=== PATIENT | male | born 1960 | race Caucasian/White ===

== ENCOUNTER 2019-10-06 10:15 | Inpatient (IN) | payer SELFPAY ==
[2019-10-06 11:26] LABS: Basophils % 0.1 % (0-1.3); Hematocrit 46.8 % (39.6-49.0); MPV 10.2 fL (7.6-11.3); RBC Red Blood Cell Count 5.23 M/uL (4.33-5.43)
[2019-10-06 11:27] LABS: Protime INR 1.07
[2019-10-06] MEDS ORDERED: METOPROLOL TAR 25 MG TAB ONE (11:29)
[2019-10-06 11:51] LABS: Albumin 3.8 g/dL (3.4-5.0); Bilirubin Direct 0.1 mg/dL (0-0.2); Bilirubin Total 0.6 mg/dL (0.2-1.0); Magnesium 2.4 mg/dL (1.8-2.4); Potassium 3.9 mmol/L (3.5-5.1); Protein, Total 8.5 g/dL (6.4-8.2); Troponin (Emerg Dept Use Only) 0.3 ng/mL (0.0-0.045)
--- NOTE | 2019-10-06 12:28 | RAD REPORT ---
EXAM DESCRIPTION: RAD - Chest Single View - 10/06/2019 12:20 pm CLINICAL HISTORY: DYSPNEA Chest pain. COMPARISON: No comparisons FINDINGS: Portable technique limits examination quality. Mild bilateral interstitial lung opacities noted which could indicate viral pneumonitis/bronchitis. T he heart is upper limit normal in size. No displaced fractures.Cervical spine hardware plate.
--- NOTE | 2019-10-06 12:40 | P.HP ---
Certification for Inpatient Patient admitted to: Observation With expected LOS: <2 Midnights Patient will require the following post-hospital care: None Practitioner: I am a practitioner with admitting privileges, knowledge of patient current condition, hospital course, and medical plan of care. Services: Services provided to patient in accordance with Admission requirements found in Title 42 Section 412.3 of the Code of Federal Regulations <Smooth Paredes - Last Filed: 10/06/19 12:31> Patient History Date of Service: 10/06/19 Primary Care Provider: none Reason for admission: Hypertensive emergency, elevated troponin History of Present Illness: 59-year-old male with no previously diagnosed medical history presents emergency department for generalized weakness. Patient reports that he has noted that his blood pressures run extremely high for a long time now. Patient also reports intermittent chest pain. He says usually happens every 3-4 days depending on activity level. Patient reports that his systolic blood pressure routinely runs over 200. Patient has never been on any blood pressure medications. States he does not believe and medicine. During his evaluation in emergency department patient is found to have a blood pressure of over 200 systolic and over 100 systolic. Troponin was elevated at 0.3. ED provider wishes to admit patient for further evaluation and management. I saw the patient in the emergency department he was awake, alert, oriented x3. In no distress. Patient denies chest pain this time. Patient is given metoprolol 25 mg p.o. once. Cardiology while patient was in the emergency department. Home medications list reviewed: Yes - Past Medical/Surgical History -: Pneumothorax -: Chest tube Psychosocial/ Personal History: Patient lives with his son in [place]. - Social History Smoking Status: Heavy Tobacco smoker (>10 cigarettes/day) Counseled patient to stop smoking for: less than 10 minutes Smoking therapy provided: Yes Patient receptive to therapy: No Alcohol use: Yes CD- Drugs: Yes Caffeine use: Yes Place of Residence: Home <Smooth Paredes - Last Filed: 10/06/19 12:31> Date of Service: 10/06/19 <iDnesh Guzman - Last Filed: 10/06/19 15:29> Allergies No Known Allergies Allergy (Unverified 10/06/19 14:23) Home Medications: NK [No Home Meds] 10/06/19 Review of Systems 10-point ROS is otherwise unremarkable General: Weakness Respiratory: Cough, Shortness of Breath, SOB with Excertion <Smooth Paredes - Last Filed: 10/06/19 12:31> Physical Examination - Physical Exam General: Alert, In no apparent distress HEENT: Atraumatic, PERRLA, Mucous membr. moist/pink, EOMI, Sclerae nonicteric Neck: Supple, JVD not distended Respiratory: Clear to auscultation bilaterally, Normal air movement Cardiovascular: Regular rate/rhythm, Normal S1 S2 Gastrointestinal: Normal bowel sounds, No tenderness Musculoskeletal: No tenderness Integumentary: No rashes Neurological: Normal gait, Normal speech, Normal strength at 5/5 x4 extr, Normal tone, Normal affect - Studies Laboratory Data (last 24 hrs) 10/06/19 11:10: PT 12.6 H, INR 1.07 10/06/19 11:10: WBC 7.2, Hgb 16.1, Hct 46.8, Plt Count 196 10/06/19 11:10: Sodium 140, Potassium 3.9, BUN 20 H, Creatinine 1.83 H, Glucose 90, Magnesium 2.4, Total Bilirubin 0.6, AST 17, ALT 18, Alkaline Phosphatase 118 H <Smooth Paredes - Last Filed: 10/06/19 12:31> - Studies Laboratory Data (last 24 hrs) 10/06/19 11:10: PT 12.6 H, INR 1.07 10/06/19 11:10: WBC 7.2, Hgb 16.1, Hct 46.8, Plt Count 196 10/06/19 11:10: Sodium 140, Potassium 3.9, BUN 20 H, Creatinine 1.83 H, Glucose 90, Magnesium 2.4, Total Bilirubin 0.6, AST 17, ALT 18, Alkaline Phosphatase 118 H <Dinesh Guzman - Last Filed: 10/06/19 15:29> Assessment and Plan - Plan Assessment Hypertensive emergency with end-organ damage, elevated troponin- Suspect underlying undiagnosed COPD Suspect underlying undiagnosed chronic kidney disease stage 3 Tobacco abuse Plan Hypertensive emergency with end-organ damage, elevated troponin: Cardiology was consulted while patient was in the emergency department, recommend metoprolol 50 mg p.o. b.i.d., Hyzaar 100 mg p.o. daily. Will also supply with p.r.n. hydralazine. Patient currently denies any chest pain but reports that he is having intermittent chest pain over the course of the last few days. Will hold off on DVT prophylaxis at this time with pressures being as high as they are, SCDs in place. Appreciate further input from cardiology. Echocardiogram has been ordered Suspect underlying undiagnosed COPD: Counseled on abstaining from tobacco use, saturations are 100%. Recommend pulmonology follow up at discharge. Suspect underlying undiagnosed chronic kidney disease stage 3: Suspect underlying chronic kidney disease but no history is available. Will repeat morning labs. Tobacco abuse: Counseled on tobacco cessation, nicotine patch provided. Discharge Plan: Home Plan to discharge in: 24 Hours - Advance Directives Does patient have a Living Will: No Does patient have a Durable POA for Healthcare: No - Code Status/Comfort Care Code Status Assessed: Yes (Patient is full code) Critical Care: No Time Spent Managing Pts Care (In Minutes): 55 <Smooth Paredes - Last Filed: 10/06/19 12:31> Physician Review Additional Text: Hypertensive urgency NSTEMI versus type 2 FL Acute on Chronic CHF possibly diastolic Acute kidney injury Plan Patient was seen and examined and findings were discussed Agree with the assessment and plan as documented by DIANE Monitor under telemetry Patient was found to have hypertensive urgency Will start on nitroglycerin drip Appreciate help from cardiology X-ray findings noted COVID 19 test is pending Will trend cardiac enzymes Echocardiogram elevated Possible LHC in a.m. Continue aspirin, statin Monitor renal parameters <Dinesh Guzman - Last Filed: 10/06/19 15:29>
--- NOTE | 2019-10-06 12:47 | ER ---
Nurse's Notes [facility] Name: Freddie Akers Age: 59 yrs Sex: Male : 1960 Arrival Date: 10/06/2019 Time: 10:24 Bed 4 Private MD: Diagnosis: Chest pain, unspecified;Non-ST elevation (NSTEMI) myocardial infarction;Hypertensive heart disease Presentation: 10/05 10:36 Chief complaint: Patient states: trouble walking for about 2 months, difficulty em breathing since 2014, shortness of breath on exertion, reports chest pain about 2 months ago, "not real bad chest pain" denies N/V, headache or syncope. Coronavirus screen: Patient denies a cough. Patient denies shortness of breath or difficulty breathing. Patient denies measured and/or subjective temperature greater than 100.4F prior to today's visit. Patient denies travel on a cruise ship or to a country the [facility] currently lists as an affected area. Patient denies contact with known and/or suspected case of COVID-19. Ebola Screen: Patient negative for fever greater than or equal to 101.5 degrees Fahrenheit, and additional compatible Ebola Virus Disease symptoms Patient denies exposure to infectious person. Patient denies travel to an Ebola-affected area in the 21 days before illness onset. No symptoms or risks identified at this time. Initial Sepsis Screen: Does the patient meet any 2 criteria? No. Patient's initial sepsis screen is negative. Does the patient have a suspected source of infection? No. Patient's initial sepsis screen is negative. Risk Assessment: Do you want to hurt yourself or someone else? Patient reports no desire to harm self or others. Onset of symptoms was July 2019. 10:36 Method Of Arrival: Wheelchair em 10:36 Acuity: STEVO 2 em Triage Assessment: 12:02 General: Appears in no apparent distress. Behavior is calm, cooperative. Pain: Denies ll1 pain. Respiratory: the patient has mild shortness of breath. Respiratory: No deficits noted. Historical: - Allergies: 10:39 No Known Allergies; em - Home Meds: 10:39 None [Active]; em - PMHx: 10:39 None; em - PSHx: 10:39 None; em - Immunization history:: Adult Immunizations up to date. - Social history:: Smoking status: Patient reports the use of cigarette tobacco products, smokes two packs cigarettes per day. Screenin:25 Abuse screen: Denies threats or abuse. Denies injuries from another. Nutritional sv screening: No deficits noted. Tuberculosis screening: No symptoms or risk factors identified. Fall Risk None identified. Assessment: 11:25 General: Appears in no apparent distress. comfortable, well developed, Behavior is sv calm, cooperative, appropriate for age. General: Reports that his PCP has tried mx different types of BP meds but has not found one that works for him. Pain: Complains of pain in chest Pain currently is 6 out of 10 on a pain scale. Pain began 2 months ago Is intermittent. Neuro: Level of Consciousness is awake, alert, obeys commands, Oriented to person, place, time, situation, Moves all extremities. Full function Gait is steady. Cardiovascular: Patient's skin is warm and dry. Rhythm is sinus rhythm. Respiratory: Reports shortness of breath on exertion intermittently Airway is patent Respiratory effort is even, unlabored, Respiratory pattern is regular, symmetrical. Derm: Skin is intact, Skin is pink, warm \\T\\ dry. 12:00 Reassessment: Patient appears in no apparent distress at this time. No changes from ll1 previously documented assessment. Patient and/or family updated on plan of care and expected duration. Pain level reassessed. Patient is alert, oriented x 3, equal unlabored respirations, skin warm/dry/pink. 13:00 Reassessment: Patient appears in no apparent distress at this time. No changes from ll1 previously documented assessment. Patient and/or family updated on plan of care and expected duration. Pain level reassessed. Patient is alert, oriented x 3, equal unlabored respirations, skin warm/dry/pink. Respiratory: Breath sounds are clear bilaterally. 13:49 Reassessment: Patient appears in no apparent distress at this time. No changes from ll1 previously documented assessment. Patient and/or family updated on plan of care and expected duration. Pain level reassessed. Patient is alert, oriented x 3, equal unlabored respirations, skin warm/dry/pink. Vital Signs: 10:36 BP 211 / 144 LA; Pulse 86; Resp 20; Temp 98.1(O); Pulse Ox 99% on R/A; Weight 78.47 kg; em Height 5 ft. 9 in. (175.26 cm); Pain 6/10; 10:38 BP 219 / 130 RA; em 11:27 BP 224 / 146; Pulse 87 MON; Resp 17; Pulse Ox 100% ; sv 12:00 BP 214 / 144 Supine; Pulse 79; Resp 17; ll1 12:00 BP 214 / 133 Sitting; Pulse 79; ll1 12:00 BP 206 / 142 Standing; Pulse 88; ll1 12:02 BP 208 / 131; Pulse 79; Resp 17; Pulse Ox 100% ; Pain 0/10; ll1 13:24 BP 194 / 135; Pulse 81; Resp 17; Temp 98.1; Pulse Ox 100% on R/A; Pain 0/10; ll1 13:49 BP 206 / 129; Pulse 77; Resp 16; Pulse Ox 99% ; Pain 0/10; ll1 10:36 Body Mass Index 25.55 (78.47 kg, 175.26 cm) em 11:27 Sinus Rhythm sv ED Course: 10:24 Patient arrived in ED. fj1 10:39 Triage completed. em 10:39 Arm band placed on. em 10:41 Pedro Rick MD is Attending Physician. kdr 10:56 Cata Oates, RN is Primary Nurse. sv 11:10 Initial lab(s) drawn, by pa, sent to lab. Inserted saline lock: 20 gauge in right em forearm, using aseptic technique. Blood collected. 11:25 Patient has correct armband on for positive identification. Placed in gown. Bed in low sv position. Call light in reach. manager monitoring on. Pulse ox on. NIBP on. Door closed. Head of bed elevated. 11:50 Report given to Olivier ALLEN. sv 11:52 Primary Nurse role handed off by Cata Oates, RN sv 12:00 Olivier Vu, TIFFANY is Primary Nurse. ll1 12:20 XRAY Chest (1 view) In Process Unspecified. EDMS 12:46 José Miguel Guzman MD is Hospitalizing Provider. kdr 13:48 No provider procedures requiring assistance completed. Patient admitted, IV remains in ll1 place. Administered Medications: 11:27 Drug: Lopressor 25 mg Route: PO; sv 11:49 Follow up: Response: No adverse reaction sv 13:35 Follow up: Response: No adverse reaction; Blood pressure is lowered; RASS: Alert and ll1 Calm (0) 13:23 Drug: Aspirin Chewable Tablet 324 mg Route: PO; ll1 13:35 Follow up: Response: No adverse reaction; RASS: Alert and Calm (0) 1 Outcome: 12:46 Decision to Hospitalize by Provider. kdr 13:48 Admitted to Med/surg accompanied by tech, room 220, with chart, Report called to denny Thomas RN on 2nd. 13:48 Condition: stable 14:03 Patient left the ED. [facility] Signatures: Dispatcher [employer] Cata Salgado, RN RN Pedro Rick MD MD kdr Munoz, Edgar, RN RN em James, Frank Olivier Lu RN RN 1 Corrections: (The following items were deleted from the chart) 10:40 10:36 BP 211 / 144; Pulse 86bpm; Resp 20bpm; Pulse Ox 99% RA; Temp 98.1F Oral; 78.47 em kg; Height 5 ft. 9 in.; BMI: 25.5; Pain 6/10; em 11:28 10:38 BP 119 / 130 R Arm; em em
--- NOTE | 2019-10-06 12:47 | EDPHYS ---
Physician Documentation [facility] Name: Freddie Akers Age: 59 yrs Sex: Male : 1960 Arrival Date: 10/06/2019 Time: 10:24 Bed 4 Private MD: ED Physician Pedro Rick HPI: 10/05 11:37 This 59 yrs old Male presents to ER via Wheelchair with complaints of kdr Breathing Difficulty, High Blood Pressure, BALANCE PROB. 11:37 The patient has shortness of breath at rest, with light activity. Onset: The kdr symptoms/episode began/occurred gradually, 5 month(s) ago. Duration: The symptoms are continuous, and are steadily getting worse. The patient's shortness of breath is aggravated by exertion, light activity. Associated signs and symptoms: Pertinent positives: chest pain, Intermittent. Severity of symptoms: At their worst the symptoms were mild in the emergency department the symptoms are unchanged. The patient has not experienced similar symptoms in the past. The patient has not recently seen a physician. Historical: - Allergies: 10:39 No Known Allergies; em - Home Meds: 10:39 None [Active]; em - PMHx: 10:39 None; em - PSHx: 10:39 None; em - Immunization history:: Adult Immunizations up to date. - Social history:: Smoking status: Patient reports the use of cigarette tobacco products, smokes two packs cigarettes per day. ROS: 11:37 Constitutional: Negative for fever, chills, and weight loss, - states that when he kdr stands up he gets SOB and weak - his legs give out and he falls. Denies any injury from the falls Eyes: Negative for injury, pain, redness, and discharge, Neck: Negative for injury, pain, and swelling, Cardiovascular: Negative for palpitations, and edema - he does intermittent and fleeting CP that lasts a few mintues. Last time was yesterday Respiratory: Negative for shortness of breath, cough, wheezing, and pleuritic chest pain, Abdomen/GI: Negative for abdominal pain, nausea, vomiting, diarrhea, and constipation, Back: Negative for injury and pain, : Negative for injury, bleeding, discharge, and swelling, MS/Extremity: Negative for injury and deformity, Skin: Negative for injury, rash, and discoloration, Neuro: Negative for headache, weakness, numbness, tingling, and seizure activity. Psych: Negative for depression, anxiety, suicide ideation, homicidal ideation, and hallucinations, Allergy/Immunology: Negative for hives, rash, and allergies, Endocrine: Negative for neck swelling, polydipsia, polyuria, polyphagia, and marked weight changes, Hematologic/Lymphatic: Negative for swollen nodes, abnormal bleeding, and unusual bruising. Exam: 11:37 Constitutional: This is a well developed, well nourished patient who is awake, alert, kdr and in no acute distress. Head/Face: Normocephalic, atraumatic. Eyes: Pupils equal round and reactive to light, extra-ocular motions intact. Lids and lashes normal. Conjunctiva and sclera are non-icteric and not injected. Cornea within normal limits. Periorbital areas with no swelling, redness, or edema. Neck: Trachea midline, no thyromegaly or masses palpated, and no cervical lymphadenopathy. Supple, full range of motion without nuchal rigidity, or vertebral point tenderness. No Meningismus. Chest/axilla: Normal chest wall appearance and motion. Nontender with no deformity. No lesions are appreciated. Cardiovascular: Regular rate and rhythm with a normal S1 and S2. No gallops, murmurs, or rubs. Normal PMI, no JVD. No pulse deficits. Respiratory: Lungs have equal breath sounds bilaterally, clear to auscultation and percussion. No rales, rhonchi or wheezes noted. No increased work of breathing, no retractions or nasal flaring. Abdomen/GI: Soft, non-tender, with normal bowel sounds. No distension or tympany. No guarding or rebound. No evidence of tenderness throughout. Back: No spinal tenderness. No costovertebral tenderness. Full range of motion. Skin: Warm, dry with normal turgor. Normal color with no rashes, no lesions, and no evidence of cellulitis. MS/ Extremity: Pulses equal, no cyanosis. Neurovascular intact. Full, normal range of motion. Neuro: Awake and alert, GCS 15, oriented to person, place, time, and situation. Cranial nerves II-XII grossly intact. Motor strength 5/5 in all extremities. Sensory grossly intact. Cerebellar exam normal. Normal gait. Psych: Awake, alert, with orientation to person, place and time. Behavior, mood, and affect are within normal limits. 11:54 ECG was reviewed by the Attending Physician. kdr Vital Signs: 10:36 BP 211 / 144 LA; Pulse 86; Resp 20; Temp 98.1(O); Pulse Ox 99% on R/A; Weight 78.47 kg; em Height 5 ft. 9 in. (175.26 cm); Pain 6/10; 10:38 BP 219 / 130 RA; em 11:27 BP 224 / 146; Pulse 87 MON; Resp 17; Pulse Ox 100% ; sv 12:00 BP 214 / 144 Supine; Pulse 79; Resp 17; ll1 12:00 BP 214 / 133 Sitting; Pulse 79; ll1 12:00 BP 206 / 142 Standing; Pulse 88; ll1 12:02 BP 208 / 131; Pulse 79; Resp 17; Pulse Ox 100% ; Pain 0/10; ll1 13:24 BP 194 / 135; Pulse 81; Resp 17; Temp 98.1; Pulse Ox 100% on R/A; Pain 0/10; ll1 13:49 BP 206 / 129; Pulse 77; Resp 16; Pulse Ox 99% ; Pain 0/10; ll1 10:36 Body Mass Index 25.55 (78.47 kg, 175.26 cm) em 11:27 Sinus Rhythm sv MDM: 11:37 Data reviewed: vital signs, nurses notes, lab test result(s), radiologic studies. kdr Counseling: I had a detailed discussion with the patient and/or guardian regarding: the historical points, exam findings, and any diagnostic results supporting the discharge/admit diagnosis, lab results, radiology results. 12:46 Patient medically screened. kdr 10/05 11:02 Order name: Basic Metabolic Panel; Complete Time: 12:30 em 10/05 11:02 Order name: CBC with Diff; Complete Time: 12:30 em 10/05 11:02 Order name: LFT's; Complete Time: 12:30 em 10/05 11:02 Order name: Magnesium; Complete Time: 12:30 em 10/05 11:02 Order name: NT PRO-BNP; Complete Time: 12:30 em 10/05 11:02 Order name: PT-INR; Complete Time: 12:30 em 10/05 11:02 Order name: Troponin (emerg Dept Use Only); Complete Time: 12:30 em 10/05 11:02 Order name: XRAY Chest (1 view); Complete Time: 12:10/05 11:02 Order name: EKG; Complete Time: 10/05 11:02 Order name: Cardiac monitoring; Complete Time: 10/05 11:02 Order name: EKG - Nurse/Tech; Complete Time: 10/05 11:02 Order name: IV Saline Lock; Complete Time: 10/05 11: Order name: Labs collected and sent; Complete Time: 10/05 11: Order name: O2 Per Protocol; Complete Time: 10/05 11: Order name: O2 Sat Monitoring; Complete Time: 10/05 11: Order name: Orthostatic Blood Pressure; Complete Time: 12:16 kdr EC:54 Rate is 89 beats/min. Rhythm is regular, Normal Sinus Rhythm with No ectopy. QRS [place] kdr is Normal. VA interval is normal. QRS interval is normal. QT interval is normal. No Q waves. Clinical impression: NSR w/ Non-specific ST/T Changes. Administered Medications: 11:27 Drug: Lopressor 25 mg Route: PO; sv 11:49 Follow up: Response: No adverse reaction sv 13:35 Follow up: Response: No adverse reaction; Blood pressure is lowered; RASS: Alert and ll1 Calm (0) 13:23 Drug: Aspirin Chewable Tablet 324 mg Route: PO; ll1 13:35 Follow up: Response: No adverse reaction; RASS: Alert and Calm (0) ll1 Disposition: 10/06/19 12:46 Hospitalization ordered by José Miguel Guzman for Observation. Preliminary diagnosis are Chest pain, unspecified, Non-ST elevation (NSTEMI) myocardial infarction, Hypertensive heart disease. - Bed requested for Telemetry/MedSurg (observation). - Status is Observation. ll1 - Condition is Fair. - Problem is new. - Symptoms have improved. Signatures: Dispatcher [employer] EDJade Dhaliwal Stephanie, RN RN Pedro Shah MD MD kdr Munoz, Edgar, RN RN em Smooth Paredes, MECHANICAL SERVICE SPECIALIST-C MECHANICAL SERVICE SPECIALIST-Cla1 Olivier Vu RN RN ll1 Corrections: (The following items were deleted from the chart) 13:15 12:46 Hospitalization Ordered by José Miguel Guzman MD for Observation. Preliminary bd diagnosis is Chest pain, unspecified; Non-ST elevation (NSTEMI) myocardial infarction; Hypertensive heart disease. Bed requested for Telemetry/MedSurg (observation). Status is Observation. Condition is Fair. Problem is new. Symptoms have improved. kdr 14:03 13:15 10/06/2019 12:46 Hospitalization Ordered by José Miguel Guzman MD for Observation. ll1 Preliminary diagnosis is Chest pain, unspecified; Non-ST elevation (NSTEMI) myocardial infarction; Hypertensive heart disease. Bed requested for Telemetry/MedSurg (observation). Status is Observation. Condition is Fair. Problem is new. Symptoms have improved. bd
[2019-10-06] MEDS ORDERED: ASPIRIN 81 MG CHEWABLE TABLET ONE (13:29)
[2019-10-06 14:22] VITALS: BMI 25.1
[2019-10-06] MEDS ORDERED: HYDRALAZINE HCL 20 MG/ML VIAL IV PRN (14:34)
[2019-10-06] MEDS ORDERED: ACETAMINOPHEN 500 MG TAB PO PRN (14:34)
[2019-10-06] MEDS ORDERED: ONDANSETRON 4 MG/2 ML VIAL IV PRN (14:34)
[2019-10-06] MEDS ORDERED: NITROGLYCERIN/D5W 50 MG/250 ML BTL IV PRN (15:58)
[2019-10-06] MEDS ORDERED: AMLODIPINE 5 MG TAB PO ONE (16:00)
[2019-10-06] MEDS: HYDRALAZINE HCL 25 MG TABLET PO SCH ×2 (16:39→21:00)
[2019-10-06] MEDS: NIFEDIPINE XL 60 MG TABLET PO SCH (16:40)
[2019-10-06] MEDS: NICOTINE 21 MG/PAT TD SCH (16:44)
--- NOTE | 2019-10-06 16:56 | CON ---
Date of Consultation: 10/06/2019 Reason For Consultation: Hypertensive emergency and elevated troponin. History Of Present Illness: A 59-year-old male, presents to the emergency room due to extremely high blood pressure and shortness of breath. Reported also intermittent chest pain. No chest pain at ti me of evaluation. In the emergency room, blood pressure was above 200. In the ER, his troponin was elevated at 0.30. At the time of evaluation, his chest pain was completely resolved and he said that he was evaluated in the past at other facility and was told that he has 4-vessel disease. The patie nt never had intervention done as per his report, but he is a poor historian. The patient is activel y smoker, smokes more than 2 packs per day. Past Medical History: COPD, hypertension, active smoker. Medications: Refer to reconciliation sheet for detailed list. Allergies: NO KNOWN DRUG ALLERGIES. Social History: Active smoker. Smokes more than 2 packs per day. Does not use drugs. Drinks on a regular basis. Physical Examination: General: This is a middle-aged male, in no apparent distress. Head and Neck: Pupils are reactive t o light. Intact eye movements. No JVD. No cervical lymphadenopathy. Neck: Supple. Thyroid is no t enlarged. Lungs: Clear to auscultation bilaterally. No rhonchi, rales, or crackles. No accessor y muscle use. Heart: Regular rate and rhythm. No extra sounds. Abdomen: Soft, nontender. Bowel sounds positive. No organomegaly. No masses or hernia. Extremities: No edema, clubbing, or cyanos is. Intact pulses. Skin: No rashes. Neurologic: Alert, awake, oriented x3. No acute focal defic its appreciated. Lymph nodes: No cervical, axillary lymphadenopathy. Investigations: Sodium 140, creatinine 1.83. There are no other visits. His white blood count 7.2, hemoglobin 16.1. NT-proBNP is 2157. Assessment And Plan: 1.Hypertensive crisis. Initially blood pressure was 206/129, now it is coming down to 190 range. I recommend admission to ICU on nitroglycerin drip and introduced oral medications including Norvasc 5 mg and Coreg 3.325 mg twice a day and adjust further as needed of the above 2 medications and to ach ieve blood pressure goal. 2.Shortness of breath with elevated NT-proBNP suggestive of congestive heart failure. Obtain echoca rdiogram. Again, keep the patient on IV nitroglycerin drip for afterload reduction and management of his heart failure. 3.Chest pain with a troponin of 0.30, is elevated. This could be a factor of hypertension. The pat ient is chest pain free now. Obtain the EKG and set the patient for coronary angiogram tomorrow morn ing. We will recommend to start him on heparin drip, aspirin 81 mg and to further set for cardiac en zymes and obtain echo. 4.Smoking. So, the patient was counseled against smoking. SR/MODL Voice ID: [id number] Report ID: [id number]
[2019-10-06] MEDS ORDERED: NITROGLYCERIN/D5W 50 MG/250 ML BTL IV ONE (17:39)
[2019-10-06] MEDS: HEPARIN/D5W 25,000 UNIT/500 ML BAG IV SCH (17:53)
[2019-10-06] MEDS ORDERED: HEPARIN/D5W 25,000 UNIT/500 ML BAG IV ONE (18:02)
[2019-10-06] MEDS ORDERED: METOPROLOL TAR 50 MG TAB ONE (21:00)
[2019-10-06] MEDS ORDERED: HYDRALAZINE HCL 10 MG TABLET ONE (21:08)
[2019-10-06] MEDS: METOPROLOL TAR 50 MG TAB PO SCH (21:10)
[2019-10-07 02:41] LABS: Absolute Lymphocytes (CBC) 1.8 K/uL (0.7-4.9); Basophils % 0.9 % (0-1.3); Hematocrit 48.9 % (39.6-49.0); Lymphocytes % 17.3 % (15.3-44.8); MPV 10.5 fL (7.6-11.3); RBC Red Blood Cell Count 5.46 M/uL (4.33-5.43)
[2019-10-07] MEDS ORDERED: ACETAMINOPHEN 500 MG TAB ONE ×2 (02:44→08:40)
[2019-10-07 03:10] LABS: Magnesium 2.3 mg/dL (1.8-2.4); Potassium 3.7 mmol/L (3.5-5.1)
[2019-10-07] MEDS ORDERED: METOPROLOL TAR 50 MG TAB ONE (08:40)
[2019-10-07] MEDS ORDERED: NICOTINE 21 MG/PAT TD ONE (08:40)
[2019-10-07] MEDS: NIFEDIPINE XL 60 MG TABLET PO SCH (09:18)
[2019-10-07] MEDS: NICOTINE 21 MG/PAT TD SCH (09:18)
[2019-10-07] MEDS: METOPROLOL TAR 50 MG TAB PO SCH ×2 (09:18→21:22)
[2019-10-07] MEDS: HYDRALAZINE HCL 25 MG TABLET PO SCH ×3 (09:18→21:22)
--- NOTE | 2019-10-07 09:54 | P.PN ---
Subjective Date of Service: 10/07/19 Primary Care Provider: none Chief Complaint: Hypertensive emergency, elevated troponin Subjective: No new changes Review of Systems 10-point ROS is otherwise unremarkable Physical Examination - Vital Signs Temperature: 98.0 F Blood Pressure: 152/95 Pulse: 84 Respirations: 22 Pulse Ox (%): 98 - Physical Exam General: Alert, In no apparent distress, Oriented x3 HEENT: Atraumatic, Normocephalic Neck: Supple Respiratory: Clear to auscultation bilaterally, Normal air movement Cardiovascular: Normal pulses, Regular rate/rhythm Capillary refill: <2 Seconds Gastrointestinal: Soft and benign, W/out hepatosplenomegaly Musculoskeletal: No clubbing, No swelling Integumentary: No rashes Neurological: Normal speech, Normal strength at 5/5 x4 extr Lymphatics: No axilla or inguinal lymphadenopathy - Studies Laboratory Data (last 24 hrs) 10/06/19 19:15: Troponin I 0.17 H 10/06/19 11:10: PT 12.6 H, INR 1.07 10/06/19 11:10: WBC 7.2, Hgb 16.1, Hct 46.8, Plt Count 196 10/06/19 11:10: Sodium 140, Potassium 3.9, BUN 20 H, Creatinine 1.83 H, Glucose 90, Magnesium 2.4, Total Bilirubin 0.6, AST 17, ALT 18, Alkaline Phosphatase 118 H Microbiology Data (last 24 hrs): 10/06/19 14:45 Nasopharnyx Coronavirus COVID-19 PCR - Final Assessment & Plan Physician Review Additional Text: Hypertensive urgency NSTEMI versus type 2 [place] Acute on Chronic CHF possibly diastolic Acute kidney injury Plan Monitor under telemetry Patient was found to have hypertensive urgency on nitroglycerin drip will be weaned off Stop heparin drip, will start on Lovenox for DVT prophylaxis Appreciate help from cardiology Advised conservative management X-ray findings noted COVID 19 test is pending Echocardiogram Continue aspirin, statin Monitor renal parameters Will titrate antihypertensives Monitor renal parameters Disposition plan : Wean off nitroglycerin Titrate antihypertensive Continue antiplatelets and statin Possible Dc in a.m. if BP is under control Time Spent Managing Pts Care (In Minutes): 42
[2019-10-07] MEDS ORDERED: carvediloL 6.25 MG TAB PO SCH (09:55)
[2019-10-07] MEDS ORDERED: LOSARTAN/HCTZ 50-12.5 PO SCH (15:00)
[2019-10-07] MEDS: HEPARIN/D5W 25,000 UNIT/500 ML BAG IV SCH (21:28)
[2019-10-08 05:28] LABS: Absolute Lymphocytes (CBC) 1.5 K/uL (0.7-4.9); Hematocrit 45.6 % (39.6-49.0); MPV 10.2 fL (7.6-11.3); RBC Red Blood Cell Count 5.15 M/uL (4.33-5.43)
[2019-10-08 05:49] LABS: Magnesium 2.3 mg/dL (1.8-2.4); Potassium 3.6 mmol/L (3.5-5.1)
[2019-10-08] MEDS ORDERED: HEPARIN 5000 UNIT/ML 1 ML VIAL IV SCH (07:00)
[2019-10-08] MEDS ORDERED: POTASSIUM CL SA 10 MEQ TAB PO ONE (07:00)
[2019-10-08 08:13] VITALS: TEMP 97.9
[2019-10-08 08:23] VITALS: O2SAT 97
[2019-10-08] MEDS: NIFEDIPINE XL 60 MG TABLET PO SCH (08:42)
[2019-10-08] MEDS: METOPROLOL TAR 50 MG TAB PO SCH (08:43)
[2019-10-08] MEDS: HYDRALAZINE HCL 25 MG TABLET PO SCH (08:43)
[2019-10-08] MEDS: NICOTINE 21 MG/PAT TD SCH (08:43)
[2019-10-08 08:44] VITALS: BP 164/97
--- NOTE | 2019-10-08 10:47 | P.DS ---
Admission Date: 10/06/19 Discharge Date: 10/08/19 Primary Care Provider: none Disposition: ROUTINE DISCHARGE Discharge Condition: GOOD Reason for Admission: Hypertensive emergency, elevated troponin Brief History of Present Illness: 59-year-old male with no previously diagnosed medical history presents emergency department for generalized weakness. Patient reports that he has noted that his blood pressures run extremely high for a long time now. Patient also reports intermittent chest pain. He says usually happens every 3-4 days depending on activity level. Patient reports that his systolic blood pressure routinely runs over 200. Patient has never been on any blood pressure medications. States he does not believe and medicine. During his evaluation in emergency department patient is found to have a blood pressure of over 200 systolic and over 100 systolic. Troponin was elevated at 0.3. ED provider wishes to admit patient for further evaluation and management. I saw the patient in the emergency department he was awake, alert, oriented x3. In no distress. Patient denies chest pain this time. Patient is given metoprolol 25 mg p.o. once. Cardiology while patient was in the emergency department. Hospital Course: Hypertensive urgency NSTEMI versus type 2 [place] Acute on Chronic CHF possibly diastolic Acute kidney injury Course The patient was admitted and was monitored closely under telemetry. Cardiac enzymes were trended. Cardiology was consulted. Started on nitro drip for hypertensive emergency. Which was weaned off after starting on p.o. medications. Also was started on heparin drip. cardiology recommended conservative management with outpatient follow up. Patient wanted go home and is being discharged home today in a stable condition with advice to follow up with PCP in 1 week and also with Cardiology in 1-2 weeks. Patient was advised about smoking cessation as well Vital Signs/Physical Exam: Temp Pulse Resp BP Pulse Ox 97.9 F 82 20 164/97 H 96 10/08/19 08:00 10/08/19 08:43 10/08/19 08:00 10/08/19 08:43 10/08/19 08:00 General: Alert, In no apparent distress, Oriented x3 HEENT: Atraumatic, Normocephalic Neck: Supple Respiratory: Clear to auscultation bilaterally, Normal air movement Cardiovascular: Normal pulses, Regular rate/rhythm Capillary refill: <2 Seconds Gastrointestinal: Soft and benign Musculoskeletal: No clubbing, No swelling Neurological: Normal speech, Normal strength at 5/5 x4 extr Laboratory Data at Discharge: WBC 6.9 K/uL (4.3-10.9) D 10/08/19 05:19 Hgb 15.9 g/dL (13.6-17.9) 10/08/19 05:19 Hct 45.6 % (39.6-49.0) 10/08/19 05:19 Plt Count 188 K/uL (152-406) 10/08/19 05:19 PT 12.6 SECONDS (9.5-12.5) H 10/06/19 11:10 INR 1.07 10/06/19 11:10 APTT Cancelled 10/08/19 11:00 Sodium 141 mmol/L (136-145) 10/08/19 05:19 Potassium 3.6 mmol/L (3.5-5.1) 10/08/19 05:19 BUN 21 mg/dL (7-18) H 10/08/19 05:19 Creatinine 1.60 mg/dL (0.55-1.3) H 10/08/19 05:19 Glucose 91 mg/dL (74-106) 10/08/19 05:19 Magnesium 2.3 mg/dL (1.8-2.4) 10/08/19 05:19 Total Bilirubin 0.6 mg/dL (0.2-1.0) 10/06/19 11:10 AST 17 U/L (15-37) 10/06/19 11:10 ALT 18 U/L (12-78) 10/06/19 11:10 Alkaline Phosphatase 118 U/L (45-117) H 10/06/19 11:10 Troponin I 0.18 ng/mL (0.0-0.045) H 10/07/19 10:22 Triglycerides 125 mg/dL (<150) 10/07/19 02:20 Cholesterol 194 mg/dL (<200) 10/07/19 02:20 HDL Cholesterol 44 mg/dL (40-60) 10/07/19 02:20 Cholesterol/HDL Ratio 4.41 10/07/19 02:20 Home Medications: Aspirin [Aspirin EC 81 MG] 81 mg PO DAILY #30 tablet. 10/08/19 Atorvastatin Calcium 40 mg PO BEDTIME #30 tablet 10/08/19 Hydralazine [Apresoline*] 50 mg PO TID #60 tab 10/08/19 Metoprolol Tartrate [Lopressor*] 50 mg PO BID #60 tab 10/08/19 Nifedipine Xl [Procardia XL*] 60 mg PO DAILY #30 tab 10/08/19 New Medications: Hydralazine [Apresoline*] 50 mg PO TID #60 tab Aspirin [Aspirin EC 81 MG] 81 mg PO DAILY #30 tablet. Atorvastatin Calcium 40 mg PO BEDTIME #30 tablet Metoprolol Tartrate [Lopressor*] 50 mg PO BID #60 tab Nifedipine Xl [Procardia XL*] 60 mg PO DAILY #30 tab Followup: David Bhakta MD [ACTIVE - CAN ADMIT] - Time spent managing pt's care (in minutes): 42
--- NOTE | 2019-10-10 08:46 | ECHO ---
HEIGHT: 5 ft 8 in WEIGHT: 165 lb 5 oz DATE OF STUDY: 10/07/[address]: Smooth Paredes NP 2-DIMENSIONAL: YES M.MODE: YES DOPPLER: YES COLOR FLOW: YES TDS: NO PORTABLE: YES DEFINITY: NO BUBBLE STUDY: NO DIAGNOSIS: ELEVATED TROPONIN CARDIAC HISTORY: CATHERIZATION: NO SURGERY: NO PROSTHETIC VALVE: NO PACEMAKER: NO MEASUREMENTS (cm) DIASTOLIC (NORMALS) SYSTOLIC (NORMALS) IVSd 1.0 (0.6-1.2) LA Diam 3.0 (1.9-4.0) LVEF 60% LVIDd 4.0 (3.5-5.7) LVIDs 2.8 (2.0-3.5) %FS 32% LVPWd 1.1 (0.6-1.2) Ao Diam 2.8 (2.0-3.7) 2 DIMENSIONAL ASSESSMENT: RIGHT ATRIUM: NORMAL LEFT ATRIUM: NORMAL RIGHT VENTRICLE: NORMAL LEFT VENTRICLE: NORMAL TRICUSPID VALVE: NORMAL MITRAL VALVE: NORMAL PULMONIC VALVE: NORMAL AORTIC VALVE: NORMAL PERICARDIAL EFFUSION: NONE AORTIC ROOT: NORMAL LEFT VENTRICULAR WALL MOTION: NORMAL DOPPLER/COLOR FLOW: NORMAL COMMENTS: NORMAL 2D ECHOCARDIOGRAM WITH DOPPLER. NO WALL MOTION ABNORMALITY. NO EFFUSION. TECHNOLOGIST: Lidia HICKS
== END 2019-10-08 11:41 | disposition home or self-care (01) | DRG 280 ==
LOC: ER 10:15 → ERHOLD 12:16 → 2ND 13:48 → ERHOLD 17:43 → INTOOBSV 21:20 → OBSVTOIN 21:20 → 4TH 10-07 13:41 → 2ND 10-07 19:40
PROVIDERS: ADMIT Family Medicine; ATTEND Family Medicine
DX: I16.1 Hypertensive emergency (principal); I50.33 Acute on chronic diastolic (congestive) heart failure; I21.A1 Myocardial infarction type 2; N17.9 Acute kidney failure, unspecified; I11.0 Hypertensive heart disease with heart failure; F17.210 Nicotine dependence, cigarettes, uncomplicated; I16.0 Hypertensive urgency; R79.89 Other specified abnormal findings of blood chemistry; Z11.59 Encounter for screening for other viral diseases
CPT/HCPCS: 36415; 71045; 80048; 80061; 80076; 83735; 83880; 84484; 85025; 85610; 85730; 93306; 99285; G0378; J0360; J1644; U0002